=== PATIENT | female | born 1995 | race African-American/Black ===

== ENCOUNTER 2020-01-06 19:24 | Emergency (ER) | payer OTHER, MEDICAID ==
[~2020-01-06] VITALS: Ht 165.1 cm; Wt 65.8 kg
[2020-01-06] MEDS ORDERED: SSD CREAM 1% 5050 GM TOP (19:51)
[2020-01-06 20:18] VITALS: BP 122/63
== END 2020-01-06 20:20 | disposition home or self-care (01) ==
LOC: M.ERS 19:24
DX: T23.112A Burn of first degree of left thumb (nail), initial encounter (principal); T31.0 Burns involving less than 10% of body surface; X15.2XXA Contact with hotplate, initial encounter; Y93.89 Activity, other specified; Y92.89 Other specified places as the place of occurrence of the external cause; Y99.8 Other external cause status